=== PATIENT | male | born 1995 | race Caucasian/White ===

== ENCOUNTER 2017-12-19 09:27 | Emergency (ER) | payer OTHER ==
[~2017-12-19] VITALS: Ht 149.9 cm; Wt 57.7 kg
[~2017-12-19 09:27] MED LIST: BACTERICIN30 GM TP; KEFLEX500 MG PO
[2017-12-19] MEDS ORDERED: TAMIFLU75 MG PO (12:31)
[2017-12-19 12:52] VITALS: BP 120/71
== END 2017-12-19 12:53 | disposition home or self-care (01) ==
LOC: EME 09:27
PROVIDERS: Emergency Medicine
DX: J10.1 Influenza due to other identified influenza virus with other respiratory manifestations (principal); F84.0 Autistic disorder
CPT/HCPCS: 71046; 80048; 83605; 85025; 87040; 87502